=== PATIENT | male | born 1985 | race African-American/Black ===

== ENCOUNTER 2021-06-22 12:07 | Emergency (ER) | payer MEDICAID ==
[~2021-06-22] VITALS: Ht 172.7 cm; Wt 75.0 kg
[2021-06-22] MEDS ORDERED: METOCLOPRAMIDE HCL 10MG/2ML VIAL IV ONE (13:15)
[2021-06-22] MEDS ORDERED: SODIUM CHLORIDE 0.9% 1,000 ML IV ONE (13:15)
[2021-06-22] MEDS ORDERED: KETOROLAC 30MG/ML VIAL IV ONE (13:15)
[2021-06-22 14:00] VITALS: BP 122/67
== END 2021-06-22 15:50 | disposition home or self-care (01) ==
LOC: ER 12:07
DX: R51.9 Headache, unspecified (principal); H93.233 Hyperacusis, bilateral
CPT/HCPCS: 96361; 96374; 96375; 99284; J1885; J2765; J7030; Z7610